=== PATIENT | male | born 1955 | race Caucasian/White ===

== ENCOUNTER 2016-07-10 12:45 | Emergency (ER) | payer MEDICAID, SELFPAY | END 2016-07-10 14:52 | disposition home or self-care (01) | LOC: MADERS 12:45 | DX: S16.1XXA Strain of muscle, fascia and tendon at neck level, initial encounter (principal); J44.9 Chronic obstructive pulmonary disease, unspecified; F41.9 Anxiety disorder, unspecified; F31.9 Bipolar disorder, unspecified; Z87.891 Personal history of nicotine dependence; V89.2XXA Person injured in unspecified motor-vehicle accident, traffic, initial encounter | CPT/HCPCS: 99283 ==

== ENCOUNTER 2016-07-16 13:36 | Outpatient (CLI) | payer MEDICAID ==
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
== END 2016-07-16 13:37 | disposition home or self-care (01) ==
LOC: MADRAD 13:36
PROVIDERS: ATTEND Physician Assistant
DX: M54.2 Cervicalgia (principal); V89.9XXA Person injured in unspecified vehicle accident, initial encounter
CPT/HCPCS: 72050

== ENCOUNTER 2016-10-31 14:19 | Emergency (ER) | payer OTHER ==
[2016-10-31] MEDS ORDERED: Nitroglycerin 0.4 MG TAB 1 EACH ONE (15:05)
[2016-10-31] MEDS ORDERED: Aspirin 325 MG TAB ONE (15:05)
[2016-10-31 15:18] LABS: #Basophils 0.1 thou/uL (0.0-0.2); #Eosinphils 0.2 thou/uL (0.0-0.7); #Lymphocytes 2.1 thou/uL (1.20-3.40); #Monocytes 0.6 thou/uL (0.11-0.59); #Neutrophils 3.7 thou/uL (1.40-6.50); %Basophils 1.6 % (0.0-1.0); %Eosinophils 2.6 % (0.0-10.0); %Lymphocytes 31.4 % (21.0-51.0); %Monocytes 8.9 % (0.0-10.0); %Neutrophils 55.5 % (42.0-75.0); Hemoglobin 15.2 g/dL (14.0-18.0); Mean Corpuscular Hemoglobin 31.3 pg (27.0-31.0); Mean Platelet Volume 8.4 fL (7.4-10.4); Platelet Count 224 thou/uL (130-400); RBC Distribution Width 12.7 % (11.5-14.5); Red Blood Cell (RBC) Count 4.87 mill/uL (4.70-6.10); White Blood Cell (WBC) Count 6.6 thou/uL (4.8-10.8)
[2016-10-31 15:22] LABS: PTT 23.7 SEC (22.9-36.1); Prothrombin Time 13.3 SEC (12.0-14.7)
[2016-10-31] MEDS ORDERED: Donnatal Elixir 16.2 MG/5 ML UDCUP ONE (15:27)
[2016-10-31] MEDS ORDERED: Lidocaine Viscous Sol 2% 15 ml UD Cup ONE (15:28)
[2016-10-31] MEDS ORDERED: Mag-Al Plus 1200 MG/1200 MG/120 MG/30 ML UDCUP ONE (15:28)
[2016-10-31 15:35] LABS: CKMB 2.2 ng/mL (0-6.6); Troponin I Less than 0.010 ng/mL (< 0.028)
[2016-10-31 15:38] LABS: ALT (SGPT) 36 U/L (8-55); AST (SGOT) 20 U/L (5-34); Albumin 4.4 g/dL (3.5-5.0); Alkaline Phosphatase 66 U/L (40-150); Anion Gap 19 mmol/L (10-20); BUN (Urea Nitrogen) 21 mg/dL (8.4-25.7); Bilirubin, Total 0.8 mg/dL (0.2-1.2); CK (CPK) 179 U/L (30-200); Calc. Creatinine Clearance 0 mL/min (70-130); Calcium 9.5 mg/dL (7.8-10.44); Carbon Dioxide 22 mmol/L (22-29); Chloride 101 mmol/L (98-107); Estimated GFR-MDRD 58; Globulin 3.7 g/dL (2.4-3.5); Glucose 97 mg/dL (70-105); Lipase 33 U/L (8-78); Magnesium 2.2 mg/dL (1.6-2.6); Potassium 4.2 mmol/L (3.5-5.1); Protein, Total 8.1 g/dL (6.0-8.3); Sodium 138 mmol/L (136-145)
--- NOTE | 2016-10-31 15:57 | RAD ---
PORTABLE CHEST: HISTORY: Chest pain. COMPARISON: 12/17/08 study. FINDINGS: Heart size is within normal limits for AP lordotic technique. Mediastinal structures are unremarkab le. Lungs are clear of infiltrates. IMPRESSION: No active intrathoracic disease. POS: [facility]
[2016-10-31 16:35] LABS: Bacteria/HPF None Seen HPF (None Seen); Bilirubin Negative (Negative); Blood, Urine Negative (Negative); Clarity Clear (Clear); Glucose, Urine (Dipstick) Negative (Negative); Leukocyte Negative (Negative); Nitrite Negative (Negative); Other Microscopic Description C&S SET UP; Protein, Urine (Dipstick) Negative (Neg-Trace); RBC/HPF None Seen HPF (0-3); Squamous Epithelial 0-3 HPF (0-3); Urobilinogen 0.2 mg/dL (0.2-1.0); WBC/HPF None Seen HPF (0-3)
== END 2016-10-31 17:45 | disposition home or self-care (01) ==
LOC: MADERS 14:19
DX: R10.11 Right upper quadrant pain (principal); E66.9 Obesity, unspecified; J44.9 Chronic obstructive pulmonary disease, unspecified; I10 Essential (primary) hypertension; E78.00 Pure hypercholesterolemia, unspecified; F41.9 Anxiety disorder, unspecified; F31.9 Bipolar disorder, unspecified; F20.9 Schizophrenia, unspecified; Z87.891 Personal history of nicotine dependence
CPT/HCPCS: 36415; 71010; 80053; 81001; 82150; 82550; 82553; 83690; 83735; 83880; 84484; 85025; 85610; 85730; 87086; 93005; 94760

== ENCOUNTER 2020-09-04 19:13 | Emergency (ER) | payer OTHER ==
[2020-09-04 21:08] LABS: Bilirubin Negative (Negative); Blood, Urine Trace (Negative); Clarity Clear (Clear); Glucose, Urine (Dipstick) 500 mg/dL (Negative); Ketone, Urine Negative (Negative); Leukocyte Trace (Negative); Nitrite Negative (Negative); Protein, Urine (Dipstick) 30 mg/dL (Neg-Trace); Specific Gravity, Urine 1.015 (1.005-1.030); Urobilinogen 0.2 mg/dL (Less than 2); pH, Urine 5.5 (5.0-9.0)
[2020-09-04 21:14] LABS: RBC/HPF 0-3 HPF (0-3); Squamous Epithelial 0-3 HPF (0-3)
== END 2020-09-04 22:15 | disposition home or self-care (01) ==
LOC: MADERS 19:13
DX: E11.65 Type 2 diabetes mellitus with hyperglycemia (principal); E78.5 Hyperlipidemia, unspecified; I10 Essential (primary) hypertension; E66.9 Obesity, unspecified; J44.9 Chronic obstructive pulmonary disease, unspecified; E78.00 Pure hypercholesterolemia, unspecified; Z87.891 Personal history of nicotine dependence; Z79.899 Other long term (current) drug therapy
CPT/HCPCS: 36416; 71045; 81003; 81015; 94760

== ENCOUNTER 2021-08-12 10:42 | Outpatient (CLI) | payer MEDICARE, MEDICAID | END 2021-08-12 10:43 | disposition home or self-care (01) | LOC: MADRAD 10:42 | PROVIDERS: ATTEND Registered Nurse | DX: M25.532 Pain in left wrist (principal) ==